=== PATIENT | male | born 1950 | race Caucasian/White ===

== ENCOUNTER 2017-03-15 05:48 | Day surgery (SDC) | payer MEDICARE, OTHER ==
[2017-03-15] MEDS ORDERED: Lactated Ringers 1,000 ML IV SCH (06:30)
[2017-03-15] MEDS ORDERED: DIPRIVAN 200 MG/20 ML IV ONE (08:00)
[2017-03-15] MEDS ORDERED: Versed 2 MG/2 ML Injection IV ONE (08:00)
[2017-03-15 10:13] VITALS: BP 142/90; O2SAT 99
[2017-03-15 10:15] VITALS: PULSE 75
--- NOTE | 2017-03-15 11:26 | OP ---
SURGERY DATE: 03/15/17 SURGERY TIME: 751 PREOPERATIVE DIAGNOSIS: 1. SCREENING EXAM. POSTOPERATIVE DIAGNOSIS: 1. POLYPS IN THE COLON IN THE ASCENDING, SIGMOID, AND RECTUM. PROCEDURE: 1. Colonoscopy with biopsy. SURGEON: Dr. Gomez. ANESTHESIA: MAC. Medications given by the Anesthesia Department. BRIEF HISTORY: The patient is a 67 y/o WM patient presenting now for his first screening colonoscopy. He was appraised of the risks of the procedure including the risk of perforation, phlebitis, untoward reaction to medication, bleeding, and missed lesions. The patient verbalized his understanding and desired to have the procedure performed. DESCRIPTION OF PROCEDURE: The patient was given the medications by the Anesthesia Department. He had continuous pulse oximetry, ECG monitoring, intermittent BP monitoring, and end tidal CO2 monitoring during the examination. He was placed in the left lateral decubitus position. A digital rectal examination was performed and revealed normal anal sphincter tone, no masses, and a normal prostate. The flexible Olympus pediatric colonoscope was used to intubate the rectum. A view of the colon was developed sequentially to the cecum. Upon insertion and withdrawal, including a retroflex view in the rectum, were noted polyps near the hepatic flexure in the mid sigmoid and rectal areas. These were all biopsied to rule out any adenomatous change. The scope was then removed from the patient who tolerated the procedure well and was sent back to OP recovery in good condition. The prep was noted to be fair to good.
== END 2017-03-15 09:40 | disposition home or self-care (01) ==
LOC: SDC 05:48
PROVIDERS: ATTEND Family Medicine
PROC: 0DBK8ZX Excision of Ascending Colon, Via Natural or Artificial Opening Endoscopic, Diagnostic (ICD-10-PCS; principal; 2017-03-15)
PROC: 0DBP8ZX Excision of Rectum, Via Natural or Artificial Opening Endoscopic, Diagnostic (ICD-10-PCS; 2017-03-15)
PROC: 0DBN8ZX Excision of Sigmoid Colon, Via Natural or Artificial Opening Endoscopic, Diagnostic (ICD-10-PCS; 2017-03-15)
DX: D12.2 Benign neoplasm of ascending colon (principal); D12.5 Benign neoplasm of sigmoid colon; K62.1 Rectal polyp; Z12.11 Encounter for screening for malignant neoplasm of colon
CPT/HCPCS: 00810; 36415; 88305; J2250; J2704

== ENCOUNTER 2019-11-06 06:19 | Day surgery (SDC) | payer MEDICARE, OTHER ==
[~2019-11-06 06:19] MED LIST: Lactated Ringers 1,000 ML IV ONE
[2019-11-06] MEDS ORDERED: Lactated Ringers 1,000 ML IV SCH (06:30)
[2019-11-06] MEDS ORDERED: DIPRIVAN 200 MG/20 ML IV ONE ×2 (08:01→08:23)
[2019-11-06] MEDS ORDERED: Ketamine HCl 50 MG/ML ONE (08:01)
[2019-11-06 09:31] VITALS: BP 141/76; PULSE 69; O2SAT 99
--- NOTE | 2019-11-06 11:20 | OP ---
SURGERY DATE/TIME: 11/06/201907 PREOPERATIVE DIAGNOSIS: History of tubular adenoma. POSTOPERATIVE DIAGNOSIS: Polyps in the proximal transverse colon and scattered polyps in the sigmoid colon and mild sigmoid diverticulosis. PROCEDURE: Colonoscopy with hot snare polypectomy and cold forceps biopsy. SURGEON: Dr. Gomez. ANESTHESIA: MAC. Medications given by anesthesia department. HISTORY: The patient is a 69 year-old white male patient presenting now for repeat examination due to having colon polyps removed four years ago. The patient was reappraised of the risks of the procedure including the risk of perforation, phlebitis, untoward reaction to medication, bleeding and missed lesions. The patient verbalized his understanding and desired to have the procedure performed. DESCRIPTION OF PROCEDURE: The patient was given the medications by the anesthesia department. He had continuous pulse oximetry, ECG monitoring, intermittent blood pressure monitoring and tidal CO2 monitoring during the examination. He was placed in the left lateral decubitus position. A digital rectal examination was performed and revealed tight anal sphincter tone, prostate felt to be normal and no masses were felt. The flexible Olympus pediatric colonoscope was used to intubate the rectum. A view of the colon was developed sequentially to the cecum. Upon insertion and withdrawal, polyps were removed from the proximal transverse colon using hot polypectomy snare retrieved for pathologic evaluation. There was also noted to be scattered sigmoid diverticula and several small polyps in the sigmoid colon removed using a combination of forceps biopsy and cold snare technique. The scope was removed from the patient who tolerated the procedure well and was sent back to OP recovery in good condition. Blood loss was minimal. The prep was noted to be fair.
== END 2019-11-06 09:30 | disposition home or self-care (01) ==
LOC: SDC 06:19
PROVIDERS: ATTEND Family Medicine
DX: Z09 Encounter for follow-up examination after completed treatment for conditions other than malignant neoplasm (principal); Z86.010 Personal history of colon polyps; K57.30 Diverticulosis of large intestine without perforation or abscess without bleeding; D12.5 Benign neoplasm of sigmoid colon; D12.3 Benign neoplasm of transverse colon
CPT/HCPCS: 88305; 99100; J2704

== ENCOUNTER 2020-10-01 16:58 | Observation (INO) | payer MEDICARE, OTHER ==
[2020-10-01] MEDS ORDERED: TYLENOL 325 MG PO ONE (17:39)
[2020-10-01] MEDS ORDERED: TYLENOL 325 MG ONE (17:50)
[2020-10-01 17:51] LABS: Hematocrit 33.9 % (42-50); Mean Cell Volume 100.9 fl (78-100); Mean Corpuscular Hemoglobin 32.7 pg (26-32); Mean Corpuscular Hgb Concent. 32.4 g/dl (32-36); Mean Platelet Volume 8.6 fl (7.5-11.0); Platelet Count 371 K/mm3 (150-450); Red Blood Count 3.36 M/mm3 (4.1-5.6); Red Cell Distribution Width 12.1 % (11.5-14.0); White Blood Count 7.8 K/mm3 (4.0-10.5)
[2020-10-01 17:58] LABS: Appearance CLEAR (CLEAR); Bilirubin NEGATIVE (NEGATIVE); Blood NEGATIVE Ery/ul (0-5); Glucose NEGATIVE (NEGATIVE); Ketones NEGATIVE (NEGATIVE); Leukocyte Esterase NEGATIVE (NEGATIVE); Mucus SLIGHT /HPF (NEGATIVE); Nitrite NEGATIVE (NEGATIVE); Protein,Urine Dip NEGATIVE (Negative); Specific Gravity 1.029 (1.005-1.025); Urobilinogen 4 mg/dL (0-1); WBC 0-2 /HPF (0-5)
--- NOTE | 2020-10-01 18:00 | ERPHSYRPT ---
- History of Present Illness Source: patient Exam Limitations: no limitations Patient Subjective Stated Complaint: SOB Triage Nursing Assessment: Patient ambulated back to ED and transferred self to bed. Patient A+O X3. Patient's skin pink, warm and dry. Patient complains of fever 99.4-101.0, lightheadeness, fatigue and increasing SOB. Patient's lungs clear a/p ayaan. Patient states he was swabbed for COVID today with pending results. Patient was told by [facility] [employer]VENUE CYCLE ANALYST that if his O2 sat is below 93% to come to ER. Timing/Duration: week(s) (3), intermittent, gradual onset, worse Activities at Onset: activity Severity of Dyspnea-Max: moderate Severity of Dyspnea-Current: mild Modifying Factors: Improves With: rest. Worsens With: activity, coughing, exertion Associated Symptoms: cough, chest pain/discomfort, fever, loss of appetite, lightheadedness, weakness, chills, tightness, No productive cough Hx Influenza Vaccination/Date Given: Yes Hx Pneumococcal Vaccination/Date Given: No Immunizations Up to Date: Yes <DARY NAJERA - Last Filed: 10/01/20 18:34> <BART VINES - Last Filed: 10/01/20 22:33> - History of Present Illness Time Seen by Provider: 10/01/20 17:00 Physician History: 70 years old male with history of hypothyroidism presented in the ER with chief complaint of 3-week history of intermittent low-grade fever chills dry cough and shortness of breath. Patient report few days ago he felt better for couple of days but his symptoms returned. He is having shortness of breath with activity and gets better with resting. Also feels mild headache, dizzy lightheaded, generalized body aches, fatigue and tired with no energy to do his routine activities. He was seen outpatient today and has Covid swab done which is pending. He was advised to return to ER if his oxygen saturation drops below 93%. Patient is afebrile on presentation and does not seems to be in any distress and maintaining oxygen saturation around 94% on room air. (DARY NAJERA) Allergies/Adverse Reactions: No Known Drug Allergies Allergy (Verified 10/01/20 17:08) Home Medications: [place]-3 Fatty Acids/Fish Oil [Fish Oil 1,200 mg Softgel] 2,400 each PO DAILY 03/09/17 [History] Cyanocobalamin (Vitamin B-12) [B-12] 2,500 mcg SL DAILY 10/30/19 [History] Levothyroxine Sodium 75 Mcg [Synthroid 75 Mcg] 75 mcg PO DAILY 10/30/19 [History] Travel Risk - International Travel Have you traveled outside of the country in past 3 weeks: No - Coronavirus Screening Are you exhibiting any of the following symptoms?: Yes Symptoms: Fever, Shortness of Breath, Headaches/Body Aches/Fatigue Close contact with a COVID-19 positive Pt in past 14-21 Days: No <DARY NAJERA - Last Filed: 10/01/20 18:34> - Review of Systems Constitutional: Fever, Fatigue, Malaise, Weakness Eyes: No Symptoms Ears, Nose, & Throat: Nose Congestion Respiratory: Cough, Dyspnea Cardiac: No Symptoms (Aloe 9 years laminectomy MAC take doxazosin) Abdominal/Gastrointestinal: Nausea Genitourinary Symptoms: No Symptoms Musculoskeletal: Myalgias Neurological: Dizziness Psychological: No Symptoms Endocrine: No Symptoms Hematologic/Lymphatic: No Symptoms Immunological/Allergic: No Symptoms <DARY NAJERA - Last Filed: 10/01/20 18:34> - Past Medical History Pertinent Past Medical History: Yes Neurological History: No Pertinent History ENT History: Cataracts Cardiac History: No Pertinent History Respiratory History: No Pertinent History Endocrine Medical History: Hypothyroidism Musculoskeletal History: Arthritis GI Medical History: No Pertinent History History: No Pertinent History Psycho-Social History: No Pertinent History Male Reproductive Disorders: No Pertinent History Other Medical History: borderline htn. possible hiatal hernia - Past Surgical History Past Surgical History: Yes Neuro Surgical History: No Pertinent History Cardiac: No Pertinent History Respiratory: No Pertinent History Gastrointestinal: No Pertinent History Genitourinary: No Pertinent History Musculoskeletal: Other Male Surgical History: No Pertinent History Other Surgical History: plantar wart removed from foot, left wrist ganglion removed, right wrist 2005 carpal tunnel release - Social History Smoking Status: Former smoker How long have you smoked: 50 Exposure to second hand smoke: No Drug Use: none Patient Lives Alone: No <DARY NAJERA - Last Filed: 10/01/20 18:34> - Physical Exam General Appearance: no apparent distress Eye Exam: PERRL/EOMI, eyes nml inspection Ears, Nose, Throat Exam: hearing grossly normal, pharyngeal erythema Neck Exam: normal inspection, non-tender, supple, full range of motion Respiratory Exam: normal breath sounds, lungs clear Abdominal/Gastrointestinal Exam: soft, normal bowel sounds, No tenderness Extremity Exam: non-tender, normal range of motion, normal inspection Neurologic Exam: alert, oriented x 3, cooperative, biomass technician II-XII nml as tested, normal mood/affect Skin Exam: normal color SpO2 Interpretation: normal SpO2: 96 O2 Delivery: Room Air <DARY NAJERA - Last Filed: 10/01/20 18:34> - Nursing Vital Signs Nursing Vital Signs: Initial Vital Signs Temperature 99.1 F 10/01/20 17:10 Pulse Rate 85 10/01/20 17:10 Respiratory Rate 18 10/01/20 17:10 Blood Pressure 195/99 10/01/20 17:10 O2 Sat by Pulse Oximetry 96 10/01/20 17:10 Pain Scale Pain Intensity 0 - Course EKG Interpreted by Me: RATE (72), Sinus Rhythm, NORMAL AXIS, prolonged QT interval, Left Bundle Branch Block <DARY NAJERA - Last Filed: 10/01/20 18:34> - Course Nursing assessment & vital signs reviewed: Yes - CT Exams Chest CT Interpretation: Tele-radiologist Report (Several tiny bilateral nonoccluding PEs. Bilateral peripheral airspace disease without effusion. 5 x 3.6 cm subcarinal adenopathy hiatal hernia) <BART VINES - Last Filed: 10/01/20 22:33> Ordered Tests: Active Orders 24 hr Category Date Time Status EKG-ER Only STAT Care 10/01/20 17:39 Active IV Insertion STAT Care 10/01/20 17:39 Active CHEST 1 VIEW (PORTABLE) Stat Exams 10/01/20 17:40 Taken CHEST WITH CONTRAST [CT] Stat Exams 10/01/20 18:54 Taken BLOOD CULTURE Stat Lab 10/01/20 18:05 Received CBC W DIFF Stat Lab 10/01/20 17:35 Completed CMP Stat Lab 10/01/20 17:35 Completed D-DIMER QUANTITATIVE Stat Lab 10/01/20 17:40 Completed LIPASE Stat Lab 10/01/20 17:35 Completed Lactic Acid Stat Lab 10/01/20 17:39 Completed Manual Differential NC Stat Lab 10/01/20 17:35 Completed TROPONIN Q3H Lab 10/01/20 17:35 Completed TROPONIN Q3H Lab 10/01/20 20:55 Completed TROPONIN Q3H Lab 10/01/20 23:45 Ordered TROPONIN Q3H Lab 10/02/20 02:45 Ordered TROPONIN Q3H Lab 10/02/20 05:45 Ordered UA W/RFX UR CULTURE Stat Lab 10/01/20 17:45 Completed Transfer Order Routine Transfer 10/01/20 Ordered Medication Summary Generic Name Dose Route Start Last Admin Trade Name Freq PRN Reason Stop Dose Admin Remdesivir 200 mg/ Sodium 250 mls @ 125 mls/hr 10/01/20 22:29 Chloride IV 10/02/20 00:28 ONCE ONE Discontinued Medications Generic Name Dose Route Start Last Admin Trade Name Freq PRN Reason Stop Dose Admin Acetaminophen 975 mg 10/01/20 17:39 10/01/20 17:50 Tylenol 325 Mg PO 10/01/20 17:40 975 mg STAT ONE Administration Acetaminophen Confirm 10/01/20 17:50 Tylenol 325 Mg Administered 10/01/20 17:51 Dose 975 mg .ROUTE .STK-MED ONE Dexamethasone Sodium Phosphate 6 mg 10/01/20 18:35 10/01/20 18:52 Decadron 10mg Inj. IV 10/01/20 18:36 6 mg STAT ONE Administration Dexamethasone Sodium Phosphate Confirm 10/01/20 18:48 Decadron 10mg Inj. Administered 10/01/20 18:49 Dose 10 mg .ROUTE .STK-MED ONE Enoxaparin Sodium 138 mg 10/01/20 22:28 Enoxaparin Sodium SQ 10/01/20 22:29 STAT STA Ceftriaxone Sodium/Dextrose 1 g in 50 mls @ 100 mls/hr 10/01/20 18:34 19:22 Rocephin 1 Gm-D5w 50 Ml Bag IV 10/01/20 19:03 Infused STAT STA Infusion Azithromycin 500 mg in 250 mls @ 250 mls/hr 10/01/20 18:34 10/01/20 20:09 Zithromax 500 Mg/ 250 Ml Nacl Premix IV 10/01/20 19:33 Infused STAT STA Infusion Azithromycin Confirm 10/01/20 18:48 Zithromax 500 Mg/ 250 Ml Nacl Premix Administered 10/01/20 18:49 Dose 500 mg in 250 mls @ ud IV .STK-MED ONE Ceftriaxone Sodium/Dextrose Confirm 10/01/20 18:48 Rocephin 1 Gm-D5w 50 Ml Bag Administered 10/01/20 18:49 Dose 1 g in 50 mls @ ud IV .STK-MED ONE Lab/Rad Data: Laboratory Result Diagrams 10/01/20 17:35 10/01/20 17:35 Laboratory Results 10/01/20 10/01/20 10/01/20 Range/Units 20:55 19:05 17:45 WBC (4.0-10.5) K/mm3 RBC (4.1-5.6) M/mm3 Hgb (12.5-18.0) gm/dl Hct (42-50) % MCV (78-100) fl MCH (26-32) pg MCHC (32-36) g/dl RDW (11.5-14.0) % Plt Count (150-450) K/mm3 MPV (7.5-11.0) fl D-Dimer (215-500) ng/mL Sodium (137-145) mmol/L Potassium (3.5-5.1) mmol/L Chloride (98-107) mmol/L Carbon Dioxide (22-30) mmol/L Anion Gap (5-15) MEQ/L BUN (9-20) mg/dL Creatinine (0.66-1.25) mg/dL Estimated GFR ML/MIN Glucose (74-106) mg/dL Lactic Acid (0.4-2.0) Calcium (8.4-10.2) mg/dL Total Bilirubin (0.2-1.3) mg/dL AST (17-59) U/L ALT (0-50) U/L Alkaline Phosphatase (38-126) U/L Troponin I < 0.012 (0.000-0.034) ng/mL Serum Total Protein (6.3-8.2) g/dL Albumin (3.5-5.0) g/dL Lipase (23-300) U/L Urine Color YELLOW (YELLOW) Urine Appearance CLEAR (CLEAR) Urine pH 5.0 (5-6) Ur Specific [place] 1.029 (1.005-1.025) Urine Protein NEGATIVE (Negative) Urine Ketones NEGATIVE (NEGATIVE) Urine Blood NEGATIVE (0-5) Miles/ul Urine Nitrite NEGATIVE (NEGATIVE) Urine Bilirubin NEGATIVE (NEGATIVE) Urine Urobilinogen 4 (0-1) mg/dL Ur Leukocyte Esterase NEGATIVE (NEGATIVE) Urine WBC (Auto) 0-2 (0-5) /HPF Urine RBC (Auto) NONE (0-2) /HPF U Epithel Cells (Auto) NONE (FEW) /HPF Urine Bacteria (Auto) NONE (NEGATIVE) /HPF Urine Mucus (Auto) SLIGHT (NEGATIVE) /HPF Urine Culture Reflexed NO (NO) Urine Glucose NEGATIVE (NEGATIVE) mg/dL SARS-CoV-2 (PCR) NEGATIVE (NEGATIVE) 10/01/20 10/01/20 10/01/20 Range/Units 17:40 17:39 17:35 WBC (4.0-10.5) K/mm3 RBC (4.1-5.6) M/mm3 Hgb (12.5-18.0) gm/dl Hct (42-50) % MCV (78-100) fl MCH (26-32) pg MCHC (32-36) g/dl RDW (11.5-14.0) % Plt Count (150-450) K/mm3 MPV (7.5-11.0) fl D-Dimer [id number] H* (215-500) ng/mL Sodium (137-145) mmol/L Potassium (3.5-5.1) mmol/L Chloride (98-107) mmol/L Carbon Dioxide (22-30) mmol/L Anion Gap (5-15) MEQ/L BUN (9-20) mg/dL Creatinine (0.66-1.25) mg/dL Estimated GFR ML/MIN Glucose (74-106) mg/dL Lactic Acid 0.9 (0.4-2.0) Calcium (8.4-10.2) mg/dL Total Bilirubin (0.2-1.3) mg/dL AST (17-59) U/L ALT (0-50) U/L Alkaline Phosphatase (38-126) U/L Troponin I < 0.012 (0.000-0.034) ng/mL Serum Total Protein (6.3-8.2) g/dL Albumin (3.5-5.0) g/dL Lipase (23-300) U/L Urine Color (YELLOW) Urine Appearance (CLEAR) Urine pH (5-6) Ur Specific [place] (1.005-1.025) Urine Protein (Negative) Urine Ketones (NEGATIVE) Urine Blood (0-5) Miles/ul Urine Nitrite (NEGATIVE) Urine Bilirubin (NEGATIVE) Urine Urobilinogen (0-1) mg/dL Ur Leukocyte Esterase (NEGATIVE) Urine WBC (Auto) (0-5) /HPF Urine RBC (Auto) (0-2) /HPF U Epithel Cells (Auto) (FEW) /HPF Urine Bacteria (Auto) (NEGATIVE) /HPF Urine Mucus (Auto) (NEGATIVE) /HPF Urine Culture Reflexed (NO) Urine Glucose (NEGATIVE) mg/dL SARS-CoV-2 (PCR) (NEGATIVE) 10/01/20 10/01/20 Range/Units 17:35 17:35 WBC 7.8 (4.0-10.5) K/mm3 RBC 3.36 L (4.1-5.6) M/mm3 Hgb 11.0 L (12.5-18.0) gm/dl Hct 33.9 L (42-50) % MCV 100.9 H (78-100) fl MCH 32.7 H (26-32) pg MCHC 32.4 (32-36) g/dl RDW 12.1 (11.5-14.0) % Plt Count 371 (150-450) K/mm3 MPV 8.6 (7.5-11.0) fl D-Dimer (215-500) ng/mL Sodium 134 L (137-145) mmol/L Potassium 4.1 (3.5-5.1) mmol/L Chloride 99 (98-107) mmol/L Carbon Dioxide 28 (22-30) mmol/L Anion Gap 11.1 (5-15) MEQ/L BUN 20 (9-20) mg/dL Creatinine 0.70 (0.66-1.25) mg/dL Estimated GFR > 60.0 ML/MIN Glucose 101 (74-106) mg/dL Lactic Acid (0.4-2.0) Calcium 8.4 (8.4-10.2) mg/dL Total Bilirubin 0.50 (0.2-1.3) mg/dL AST 63 H (17-59) U/L ALT 83 H (0-50) U/L Alkaline Phosphatase 70 (38-126) U/L Troponin I (0.000-0.034) ng/mL Serum Total Protein 7.3 (6.3-8.2) g/dL Albumin 3.7 (3.5-5.0) g/dL Lipase 235 (23-300) U/L Urine Color (YELLOW) Urine Appearance (CLEAR) Urine pH (5-6) Ur Specific [place] (1.005-1.025) Urine Protein (Negative) Urine Ketones (NEGATIVE) Urine Blood (0-5) Miles/ul Urine Nitrite (NEGATIVE) Urine Bilirubin (NEGATIVE) Urine Urobilinogen (0-1) mg/dL Ur Leukocyte Esterase (NEGATIVE) Urine WBC (Auto) (0-5) /HPF Urine RBC (Auto) (0-2) /HPF U Epithel Cells (Auto) (FEW) /HPF Urine Bacteria (Auto) (NEGATIVE) /HPF Urine Mucus (Auto) (NEGATIVE) /HPF Urine Culture Reflexed (NO) Urine Glucose (NEGATIVE) mg/dL SARS-CoV-2 (PCR) (NEGATIVE) - Progress Progress: unchanged Air Movement: fair Blood Culture(s) Obtained: Yes Antibiotics given: Yes Will see patient in: hospital (full admit) Counseled pt/family regarding: lab results, diagnosis, rad results <DARY NAJERA - Last Filed: 10/01/20 18:34> <BART VINES - Last Filed: 10/01/20 22:33> - Progress Progress Note: 10/01/20 18:35 70 years old is evaluated for fever chills cough and shortness of breath off and on for the last 3 weeks. Patient is not in any distress on presentation. Is given a steroid shot. Has normal white count, lactate. Chest x-ray showed bilateral congestion and pneumonia, started on antibiotics. COVID-19 testing would be obtained. Patient would be admitted to hospital. (DARY NAJERA) Patient endorsed to Dr. Vines at approximately [address] Vines advised to follow- up on pending Covid test and a CTA chest. CTA chest reveals tiny nonobstructing pulmonary emboli. Covid test negative. However in light of patient symptomology and chest x-ray findings we believe that this Covid test result is probably a false negative. Patient had an outpatient Covid test performed. This result is pending. We will place patient in the Covid unit pending the results of the outpatient Covid test. Case discussed with Dr. Michael who agrees wtih POC. Case discussed with Dr. Harmon who accepts admission to the Covid unit. Plan of care discussed with patient. He agrees to admission to [facility] for further evaluation and treatment. In l ight of the pulmonary embolism findings patient received a 1.5 mg/kg dose of Lovenox per Dr. Harmon request. Remdesivir was also administered. Patient stable. Vital stable. Patient voices no other complaints or concerns at this time. 10/01/20 22:30 (BART VINES) - Departure Departure Disposition: In-patient Admission Critical Care Time: Yes Critical Care Time(excluding separately billable procedures): Critical 30-74 mins <DARY NAJERA - Last Filed: 10/01/20 18:34> <BART VINES - Last Filed: 10/01/20 22:33> - Departure Clinical Impression: Pulmonary embolism, Hiatal hernia Bilateral pneumonia Qualifiers: Pneumonia type: due to unspecified organism Lung location: lower lobe of lung Qualified Code(s): J18.9 - Pneumonia, unspecified organism Condition: Stable Referrals: JA ESCALONA MD [Primary Care Provider] -
[2020-10-01 18:07] LABS: ALBUMIN 3.7 g/dL (3.5-5.0); ALKALINE PHOSPHATASE 70 U/L (38-126); ANION GAP 11.1 MEQ/L (5-15); BLOOD UREA NITROGEN 20 mg/dL (9-20); CHLORIDE 99 mmol/L (98-107); Calcium 8.4 mg/dL (8.4-10.2); Carbon Dioxide 28 mmol/L (22-30); EST GLOMERULAR FILTRATION RATE > 60.0 ML/MIN; Glucose 101 mg/dL (74-106); LIPASE 235 U/L (23-300); Potassium 4.1 mmol/L (3.5-5.1); SGOT/AST 63 U/L (17-59); SGPT/ALT 83 U/L (0-50); SODIUM 134 mmol/L (137-145); Total Protein 7.3 g/dL (6.3-8.2)
[2020-10-01] MEDS ORDERED: Zithromax 500 MG/ 250 ML NaCl Premix 500 MG/250 ML IVPB IV STA (18:34)
[2020-10-01] MEDS ORDERED: ROCEPHIN 1 Gm-D5w 50 ml Bag** 1 G/50 ML IVPB IV STA (18:34)
[2020-10-01] MEDS ORDERED: DECADRON 10MG INJ. IV ONE (18:35)
[2020-10-01] MEDS ORDERED: DECADRON 10MG INJ. ONE (18:48)
[2020-10-01] MEDS ORDERED: ROCEPHIN 1 Gm-D5w 50 ml Bag** 1 G/50 ML IVPB IV ONE (18:48)
[2020-10-01] MEDS ORDERED: Zithromax 500 MG/ 250 ML NaCl Premix 500 MG/250 ML IVPB IV ONE (18:48)
[2020-10-01] MEDS ORDERED: ENOXAPARIN SODIUM SQ STA (22:28)
[2020-10-01] MEDS ORDERED: REMDESIVIR 200 MG in Sodium Chloride 0.9% 250 ML 250 ML IV ONE (22:29)
[2020-10-01] MEDS ORDERED: ENOXAPARIN SODIUM SQ ONE ×2 (22:33→22:34)
[2020-10-01 22:57] LABS: Eosinophil 1 % (0.00-3.0); Lymphocytes 15 % (24-44); Monocyte 14 % (0.0-12.0); Neutrophils 70 % (36.-66.); Platelet Estimate NORMAL (NORMAL); Total Cells Counted 100
[2020-10-01] MEDS ORDERED: REMDESIVIR IV ONE (23:25)
[2020-10-01] MEDS ORDERED: Sodium Chloride 0.9% 250 ML 250 ML IV ONE (23:25)
[2020-10-02] MEDS ORDERED: TYLENOL EXTRA STRENGTH 500 MG PO PRN (01:27)
[2020-10-02] MEDS ORDERED: Ativan 1 MG PO PRN (01:28)
[2020-10-02 06:02] LABS: Hematocrit 34.5 % (42-50); Hemoglobin 11.5 gm/dl (12.5-18.0); Mean Cell Volume 100.6 fl (78-100); Mean Corpuscular Hemoglobin 33.5 pg (26-32); Mean Corpuscular Hgb Concent. 33.3 g/dl (32-36); Mean Platelet Volume 8.8 fl (7.5-11.0); Platelet Count 356 K/mm3 (150-450); Red Blood Count 3.43 M/mm3 (4.1-5.6); Red Cell Distribution Width 12.2 % (11.5-14.0); White Blood Count 7.6 K/mm3 (4.0-10.5)
[2020-10-02 06:19] LABS: ALBUMIN 3.6 g/dL (3.5-5.0); ALKALINE PHOSPHATASE 62 U/L (38-126); BLOOD UREA NITROGEN 14 mg/dL (9-20); CHLORIDE 102 mmol/L (98-107); Calcium 8.5 mg/dL (8.4-10.2); Carbon Dioxide 25 mmol/L (22-30); EST GLOMERULAR FILTRATION RATE > 60.0 ML/MIN; Glucose 147 mg/dL (74-106); Potassium 4.6 mmol/L (3.5-5.1); SGOT/AST 47 U/L (17-59); SGPT/ALT 70 U/L (0-50); SODIUM 133 mmol/L (137-145); Total Protein 7.1 g/dL (6.3-8.2)
[2020-10-02] MEDS ORDERED: Sodium Chloride 0.9% 10 ML FLUSH Syringe IV PRN (07:45)
--- NOTE | 2020-10-02 09:02 | XRAY ---
Indication: Short of breath. Elevated d-dimer. Multiple contiguous axial images obtained through the chest using 100 cc Isovue 370 contrast and PE protocol. Comparison: None There is good opacification of the pulmonary arteries to include the lobar and segmental branches. Small nonoccluding pulmonary emboli seen in the segmental branches of the left upper and both lower lobes. Heart is not enlarged. Aorta is normal in course and caliber with minimal calcifications. No pathologic mediastinal/hilar lymphadenopathy. Small hiatal hernia. Lungs demonstrates diffuse bilateral consolidating airspace disease predominantly peripheral in location. No effusion. Bony thorax intact with flowing osteophytes throughout the spine. Limited upper abdomen including adrenal glands are unremarkable. Impression: 1. Small nonoccluding bilateral pulmonary emboli as detailed. 2. Diffuse bilateral airspace disease. Commonly reported imaging features of Covid 19 pneumonia are present. Other processes such as influenza pneumonia and organizing pneumonia, as can be seen with drug toxicity and connective tissue disease, can cause a similar imaging pattern. 3. Incidental small hiatal hernia.
--- NOTE | 2020-10-02 09:04 | XRAY ---
Indication: Short of breath. Comparison: None Portable chest demonstrates diffuse bilateral patchy airspace disease with right mid consolidation/organizing pneumonia. No large effusion. Heart is not enlarged. Bony thorax intact with mild degenerative changes.
[2020-10-02 09:08] LABS: BAND 4 % (0.0-2.0); Lymphocytes 15 % (24-44); Monocyte 6 % (0.0-12.0); Neutrophils 75 % (36.-66.); Platelet Estimate NORMAL (NORMAL); Total Cells Counted 100; Toxic Granulation 1+
[2020-10-02] MEDS ORDERED: ENOXAPARIN SODIUM SQ SCH ×3 (10:00→22:00)
[2020-10-02] MEDS ORDERED: CYANOCOBALAMIN 2500 MCG SL SCH (10:00)
[2020-10-02] MEDS: Decadron 4 MG INJ IV SCH ×2 (11:13→21:56)
[2020-10-02] MEDS: SYNTHROID 75 MCG PO SCH (11:13)
[2020-10-02] MEDS: Vitamin B-12 500 MCG PO SCH (11:13)
--- NOTE | 2020-10-02 11:23 | HP ---
CHIEF COMPLAINT: Shortness of breath, fatigue, weakness, fever, chills. HISTORY OF PRESENT ILLNESS: A 70 year old white male who states he has had symptoms for about two weeks. [place] [facility] [place] for COVID was negative. They did not do an oxygen level that we could find. He was sent to return to the emergency room if he got worse. His neighbor is the head of our respiratory therapy who sent him back to the emergency room on the night of admission because of his fever, lightheadedness, feeling bad and looking worse. He was swabbed for COVID in the emergency room and it was negative. However the CT scan showed three small pulmonary emboli and also typical COVID pneumonia in both lungs. He had a temperature of about 99F in the emergency room and looked fatigued. He has a productive cough. No GI symptoms. He smoked many years ago. He is a nonsmoker now. Shortness of breath gets worse with coughing. He has no chest pain. His other risk factors the patient actually had a heart cath and had 50% blockage in one artery and he takes statins. Pulmonary-cavazos I think the patient smoked a small amount over the years but quit smoking. He is very active. 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 His father lived to be a very advanced age and he was working out probably until the day he . He has a history of hypothyroidism well controlled. FAMILY HISTORY: He has a son. He lives with his who has some chronic health problems. He is alert and orientated. MEDICATIONS: [place]-3 fatty acids, fish oil and vitamin B12 2,400 mg a day, Synthroid 75 mcg q.d. ALLERGIES: NKDA. PAST MEDICAL HISTORY: Borderline hypertension. Hypothyroidism. Arthritis. PAST SURGICAL HISTORY: The patient had lumbar laminectomy many years ago. Cataract surgery. REVIEW OF SYSTEMS: CONSTITUTIONAL: The patient has had fatigue, fever, weakness and just feeling bad. CHEST: Shortness of breath, has now developed a productive cough that has been going on for at one week possibly two. CARDIAC: No exertional chest pain. History of cath that showed a 50% blockage. He takes statin drugs. ABDOMEN: No GI symptoms at all. MUSCULOSKELETAL: Achiness, fairly strong. PSYCHIATRIC: The patient is perfectly stable. I have known him for many years. He exercises at the gym since he retired. SOCIAL HISTORY: 50 pack year of smoking before he quit approximately ten years ago. He does not use alcohol. Exercises routinely. PHYSICAL EXAMINATION: The patient is alert, orientated and not particularly short of breath. He has gotten larger since he retired, a big gentleman. HEENT: Pupils equal and reactive to light. Hearing good. Vision seems to be okay with glasses. NECK: No nodes. No thyromegaly. CHEST: Crackles and rales bilateral. CVS: No murmurs or gallops. ABDOMEN: Obese. No tenderness or organomegaly. EXTREMITIES: The patient can move all. He has no edema and no cyanosis. IMPRESSION: Although he has had two COVID tests, the CT is remarkable for showing diagnostic COVID and also shows three small pulmonary emboli with a D-dimer of 16,000. COVID pneumonia, pulmonary emboli, high unanticoagulated state due to COVID virus, recent history of mild coronary artery disease. PLAN: The patient will be treated aggressively with full dose anticoagulation, Remdesivir, steroids. He will be followed here especially with pulmonary emboli although he has tolerated that very well so far.
[2020-10-02] MEDS: Sodium Chloride 0.9% 10 ML FLUSH Syringe IV SCH ×2 (15:10→21:57)
[2020-10-02] MEDS ORDERED: ENOXAPARIN SODIUM SQ ONE (21:53)
[2020-10-02] MEDS ORDERED: REMDESIVIR 100 MG in Sodium Chloride 0.9% 100 ML IVPB 100 ML IV SCH (22:00)
[2020-10-03] MEDS: Sodium Chloride 0.9% 10 ML FLUSH Syringe IV SCH (06:47)
[2020-10-03] MEDS: SYNTHROID 75 MCG PO SCH (09:00)
[2020-10-03] MEDS: Decadron 4 MG INJ IV SCH (09:00)
[2020-10-03] MEDS: Vitamin B-12 500 MCG PO SCH (09:00)
[2020-10-03 09:16] LABS: ALBUMIN 3.9 g/dL (3.5-5.0); ALKALINE PHOSPHATASE 64 U/L (38-126); BLOOD UREA NITROGEN 19 mg/dL (9-20); CHLORIDE 104 mmol/L (98-107); Calcium 8.7 mg/dL (8.4-10.2); Carbon Dioxide 22 mmol/L (22-30); Creatinine 1 0.65 mg/dL (0.66-1.25); EST GLOMERULAR FILTRATION RATE > 60.0 ML/MIN; Glucose 154 mg/dL (74-106); Potassium 4.7 mmol/L (3.5-5.1); SGOT/AST 49 U/L (17-59); SGPT/ALT 76 U/L (0-50); SODIUM 134 mmol/L (137-145); Total Protein 7.8 g/dL (6.3-8.2)
[2020-10-03 09:29] LABS: Hematocrit 34.9 % (42-50); Hemoglobin 11.6 gm/dl (12.5-18.0); Mean Corpuscular Hemoglobin 33.9 pg (26-32); Mean Corpuscular Hgb Concent. 33.2 g/dl (32-36); Platelet Count 432 K/mm3 (150-450); Red Blood Count 3.42 M/mm3 (4.1-5.6); Red Cell Distribution Width 12.4 % (11.5-14.0); White Blood Count 13.3 K/mm3 (4.0-10.5)
[2020-10-03 11:57] VITALS: BP 149/53; PULSE 77; O2SAT 97
[2020-10-03] MEDS ORDERED: ENOXAPARIN SODIUM SQ SCH ×2 (12:00→22:00)
== END 2020-10-03 15:15 | disposition home or self-care (01) ==
LOC: ED 16:58 → MED SURG 23:08 → UNDOADMOB 23:08 → OBSVTOIN 10-02 10:42 → INTOOBSV 10-02 10:42
PROVIDERS: ADMIT Family Medicine; ATTEND Family Medicine
DX: U07.1 COVID-19 (principal); J12.89 Other viral pneumonia; I26.99 Other pulmonary embolism without acute cor pulmonale; R06.02 Shortness of breath; R53.83 Other fatigue; R53.1 Weakness; I10 Essential (primary) hypertension; E03.9 Hypothyroidism, unspecified
CPT/HCPCS: 36000; 36415; 71045; 71260; 80053; 81001; 83605; 83690; 84484; 85025; 85027; 85379; 87040; 93005; 93268; 94762; 96365; 96367; 96368; 96372; 96374; 99213; 99285; 99291; G0378; U0003; 94760; 96360; J0456; J0696; J1100; J1650; A9270-GY